=== PATIENT | male | born 1945 | race Caucasian/White ===

== ENCOUNTER 2022-03-25 09:51 | Outpatient (CLI) | payer MEDICARE, SELFPAY | END 2022-03-25 09:52 | disposition home or self-care (01) | LOC: ANHAUDIO 09:52 | PROVIDERS: PCP Family Medicine; Visit Provider Nurse Practitioner | DX: H90.41 Sensorineural hearing loss, unilateral, right ear, with unrestricted hearing on the contralateral side (principal); H90.72 Mixed conductive and sensorineural hearing loss, unilateral, left ear, with unrestricted hearing on the contralateral side | CPT/HCPCS: 92557; 92567 ==

== ENCOUNTER 2022-07-02 11:00 | Outpatient (RCR) | payer MEDICARE, SELFPAY | END 2022-07-02 23:59 | disposition home or self-care (01) | LOC: ANHAUDIO 11:00 | PROVIDERS: PCP Family Medicine; Visit Provider Family Medicine | DX: Z46.1 Encounter for fitting and adjustment of hearing aid (principal) | CPT/HCPCS: 99199; V5261 ==

== ENCOUNTER 2022-12-02 10:38 | Outpatient (RCR) | payer MEDICARE, SELFPAY ==
[2022-12-02 13:11] VITALS: BMI 31.0
[2022-12-02 13:13] VITALS: BMI 31.0
== END 2023-02-17 12:15 | disposition home or self-care (01) ==
LOC: ANHDMC 10:38
PROVIDERS: PCP Family Medicine; Visit Provider Family Medicine
DX: E11.9 Type 2 diabetes mellitus without complications (principal); Z71.3 Dietary counseling and surveillance
CPT/HCPCS: 97802

== ENCOUNTER 2023-04-28 07:24 | Outpatient (CLI) | payer MEDICARE, SELFPAY ==
--- NOTE | ~2023-04-28 | US_ITS ---
EXAMINATION: US abdomen complete DATE: 04/28/2023 09:55 INDICATION: Unspecified abdominal pain TECHNIQUE: Multiple grayscale and Doppler ultrasound images of the abdomen were obtained. COMPARISON: 06/06/2017 FINDINGS: Bowel gas obscures visualization of the pancreas. The liver is normal with normal echogenic ity and echotexture. No surface nodularity. Normal hepatopetal flow in the main portal vein. The gall bladder is normal with no abnormal wall thickening, pericholecystic fluid or stones. The normal commo n bile duct measures 7 mm. There was no sonographic Cabrera sign. The visualized portions of the aorta and inferior vena cava are normal. The spleen is normal in appearance and measures 12.7 cm cm. The right kidney measures 12.3 x 5.6 x 5. 4 cm. There is a 2.8 x 2.2 x 2.5 cm exophytic, isoechoic mass of the right kidney lower pole. The lef t kidney measures 13.3 x 6.3 x 4.7 cm and contains a 1.7 cm cyst. The kidneys demonstrate normal pare nchymal echogenicity. There is no hydronephrosis. IMPRESSION: 1. Indeterminate right kidney mass suspicious for renal neoplasm. Further evaluation by CT or MRI wit hout and with contrast is recommended. Reviewed, dictated and finalized at location L. ERSAL WINDING MACHINE OPERATOR IMPRESSION: 1. Indeterminate right kidney mass suspicious for renal neoplasm. Further evalu ation by CT or MRI without and with contrast is recommended.
== END 2023-04-28 07:25 | disposition home or self-care (01) ==
PROVIDERS: PCP Family Medicine; Visit Provider Nurse Practitioner
DX: R10.9 Unspecified abdominal pain (principal)
CPT/HCPCS: 76700

== ENCOUNTER 2023-05-13 07:03 | Outpatient (CLI) | payer MEDICARE, SELFPAY ==
--- NOTE | ~2023-05-13 | CT_ITS ---
EXAMINATION: CT abdomen pelvis wo/w con DATE: 05/13/2023 07:41 INDICATION: Disorders of kidney and ureter TECHNIQUE: Computed tomography (CT) of the abdomen and pelvis was performed without and subsequently with 130 CC Omnipaque 350 intravenous contrast. Automated exposure control and iterative reconstructi on technique were employed. Exam dose: 2397.58 mGy-cm total exam DLP. COMPARISON: 04/28/2023 complete abdominal ultrasound examination are indeterminate right renal mass les ion is noted, reported suspicious for renal neoplasm 2007 CT renal scan FINDINGS: Status post cholecystectomy. No hepatic, splenic, pancreatic or adrenal space-occupying mass lesion. No bile duct or pancreatic du ct dilatation. 3.3 x 3.6 x 3.9 cm vertical irregular heterogeneously hypoenhancing mass lesion of the lateral aspect of lower pole the right kidney, most consistent with malignant renal mass. Several bilateral renal cysts are noted, including one larger lower pole anterior left renal cyst jose g suring approximately 2.1 cm. 6.5 mm nonobstructing lower pole left renal calculus. No other urinary tract calculus or hydroureteronephrosis. Prostate enlargement and multiple prostate calcifications. Small sliding hiatal hernia. Duodenal diverticulum. The appendix is not detected. No bowel obstruction, bowel wall thickening, pneumatosis or intraperito yamile free air. There is atherosclerotic calcification but normal caliber of the abdominal aorta. No intraperitoneal or retroperitoneal or pelvic adenopathy or ascites. Very small fat-containing umbilical hernia. Small bilateral fat-containing inguinal hernias. Diffuse idiopathic skeletal hyperostosis of the thoracic spine. Multilevel degenerative disc disease, particularly at L3-4, L4-5 and L5-S1. Bilateral hip osteoarthritis. No suspicious osteolytic or osteoblastic lesions are noted. IMPRESSION: 3.3 x 3.6 x 3.9 cm malignant lower pole right renal neoplasm Bilateral renal cysts Status post cholecystectomy Small sliding hiatal hernia Duodenal diverticulum Prostate enlargement and calcifications Reviewed, dictated and finalized at Location A. Reviewed, dictated and finalized at location B.
[2023-05-13 07:25] LABS: Estimated Glomerular Filt Rate > 60
== END 2023-05-13 07:04 | disposition home or self-care (01) ==
PROVIDERS: PCP Family Medicine; Visit Provider Nurse Practitioner
DX: N28.1 Cyst of kidney, acquired (principal); C64.1 Malignant neoplasm of right kidney, except renal pelvis; Z90.49 Acquired absence of other specified parts of digestive tract; K44.9 Diaphragmatic hernia without obstruction or gangrene; K57.10 Diverticulosis of small intestine without perforation or abscess without bleeding
CPT/HCPCS: 74178; Q9967

== ENCOUNTER 2023-11-23 11:31 | Inpatient (IN) | payer MEDICARE, SELFPAY ==
[2023-11-23] VITALS (18 sets, daily range): BP systolic 109–145; BP diastolic 66–97; PULSE 61–115; RESP 12–26; TEMP 36.2–36.8; O2SAT 95–99; BMI 31.1
--- NOTE | 2023-11-23 | ECHO_ITS ---
Patient Info Name: Adonis Shabazz Age: 78 years : 1945 Gender: Male Ht: 72 in Wt: 230 lbs BSA: 2.33 m2 HR: 76 bpm BP: 122 / 80 mmHg Technical Quality: Fair Exam Date: 11/23/2023 2:53 PM Exam Location: Echo Lab Patient Status: Inpatient Admit Date: 11/23/2023 Staff Ordering Physician: Subhash Renteria MD ([email or web address]) Meat Press Operator: Nehemias Chase RDCS Attending Provider: Subhash Renteria MD (itz) Exam Type: CA echo dop color flow w con Study Info Indications I21.3 - ST elevation (STEMI) myocardial infarction of unspecified site Complete two-dimensional, color flow and Doppler transthoracic echocardiogram is performed with contrast to opacify the left ventricle and to improve the deliniation of the left ventricle endocardial borders. Contrast/Agitated Saline Contrast/Ag. Saline: Definity Amount: 3.00 ml Existing IV Access: Yes IV Access Condition: patent with no signs of infiltration Summary 1. The left ventricle is normal in size with mildly reduced ejection fraction. LVEF is estimated at to be 35-40%. The entire apex, distal anterior, distal lateral, distal inferior, and distal septal aleman are severely hypokinetic. There is no evidence of LV thrombus on contrast images. Left Ventricle The left ventricle is normal in size with mildly reduced ejection fraction. LVEF is estimated at to be 35-40%. The entire apex, distal anterior, distal lateral, distal inferior, and distal septal aleman are severely hypokinetic. There is no evidence of LV thrombus on contrast images. Right Ventricle The right ventricle was normal in size and systolic function. Left Atria Left atrial chamber dimension is normal. Left atrial chamber dimension is normal. Right Atria Right atrial chamber dimension is normal. Right atrial chamber dimension is normal. Aortic Valve The aortic valve is trileaflet and sclerotic. There is no aortic regurgitation. Pulmonic Valve The pulmonic valve is normal. There is no color Doppler evidence of pulmonic valve regurgitation. Mitral Valve The mitral valve leaflets are normal. There is trace mitral regurgitation. Tricuspid Valve The tricuspid valve is normal. There is trace tricuspid regurgitation. Pericardium/Pleural Pericardium is normal in appearance with no evidence for significant pericardial effusion. Inferior Vena Cava Inferior vena cava is not well visualized. Left Ventricular Outflow Tract Name Value Normal LVOT 2D LVOT Diameter 1.99 cm LVOT Doppler LVOT Peak Gradient 3 mmHg LVOT Mean Gradient 1 mmHg LVOT VTI 17.34 cm LVOT VTI/AV VTI Ratio 0.95 LVOT Stroke Volume 53.98 ml LVOT CO 3.79 l/min LVOT CI 1.63 L/min/m2 Pulmonic Valve Name Value Normal PV Doppler PV Peak Gradient
--- NOTE | 2023-11-23 11:32 | PC.NURSE ---
[address] [facility] [address] Renteria - Cardiology
--- NOTE | 2023-11-23 11:33 | ECG_ITS ---
Test Date: 2023-11-23 11:34:24 Measurements Intervals [place] Rate: 78 P: 61 ND: 176 QRS: -59 QRSD: 123 T: 70 QT: 423 QTc: 483 Interpretive Statements SINUS RHYTHM POSSIBLE RIGHT VENTRICULAR CONDUCTION DELAY [RSR (QR) IN V1/V2] LEFT ANTERIOR FASCICULAR BLOCK ABNORMAL ECG No previous ECG available for comparison Electronically Signed On 11-23-2023 13:41:17 CDT by Ayaz Victoria D.O.
--- NOTE | 2023-11-23 11:40 | ED.CHESTPAIN ---
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 Pt has history of high cholesterol and DM. Pt has no history of WI or CAD. Related Data Home Medications Medication Instructions Recorded Confirmed omega-3 fatty acids 1,000 mg 1,000 mg PO HS 07/09/20 11/23/23 capsule (Fish Oil Concentrate) loratadine 10 mg tablet (Allergy 10 mg PO ONCE PRN Allergy Symptoms 03/19/23 11/23/23 Relief (loratadine)) dapagliflozin propanediol 10 mg 10 mg PO DAILY 11/23/23 11/23/23 tablet metformin 1,000 mg tablet 1,000 mg PO Q12H 11/23/23 11/23/23 Allergies Allergy/AdvReac Type Severity Reaction Status Date / Time ketorolac Allergy Intermediate Hallucinati Verified 11/23/23 13:20 ng Review of Systems Review of Systems: All systems reviewed & are unremarkable except as noted in HPI and below PMFSH Past Medical History Medical History Hepatitis C antibody test negative (10/15/18) Mixed hyperlipidemia Renal cancer Type 2 diabetes mellitus without complications Surgical History Surgical History History of knee replacement (~2005) Hx of cholecystectomy (~06/07/17) Family History Family History (Updated 11/23/23 @ 13:10 by Nell Love RN) Sibling Diabetes mellitus Cerebrovascular accident Hypertension Father Congestive heart failure Hypertension Grandparent Acute myocardial infarction Son Cerebrovascular accident Mother Hypertension Social History Social History Social History: Caffeine- coffee/soda Smoking status: Former smoker Second hand tobacco smoke exposure: Yes Additional smoking assessment comments: pt only smoked in high school Alcohol intake: former Substance use: never Substance use type: does not use Do You Feel Safe in your Home?: Yes Lack of Transportation: No Lack of Food: Never True Current Housing: I Have Housing Concerned About Future Housing: No Difficulty Paying Gas/Electric Bills: No Difficulty Paying for Meds: No Currently Unemployed: No Education: High School Diploma/GED Difficulty w/ Childcare or Family Care: No Occupation/Education: retired Gender identity (if verbalized by the patient): Male Spiritual care concerns: No Exam Const: General: healthy appearing and no acute distress Orientation/consciousness: patient oriented x3 Limitations: no limitations Chest: Chest palpation & inspection: normal inspection of the chest Resp: Effort & Inspection: normal respiratory effort Auscultation: clear to auscultation bilaterally Cardio: Rate: regular rate Rhythm: regular rhythm Skin: General skin exam: normal color Rashes: no rashes Neuro: General: patient oriented x3 and moves all extremities Cranial nerves: Yes Nystagmus not present Speech: normal speech Extrem: General: normal to inspection and no clubbing, cyanosis or edema Psych: Mental Status: mental status grossly normal Affect: normal affect Attitude: cooperative Course Vital Signs Vital signs: Vital Signs Temperature 97.1 F L 11/23/23 11:33 Pulse Rate 66 11/23/23 11:33 Respiratory Rate 26 H 11/23/23 11:33 Blood Pressure 135/69 11/23/23 11:33 Pulse Oximetry 97 11/23/23 11:33 Oxygen Delivery Room Air 11/23/23 11:33 Temperature 97.9 F 11/23/23 17:45 Pulse Rate 75 11/23/23 17:45 Respiratory Rate 19 11/23/23 17:45 Blood Pressure 145/81 H 11/23/23 17:45 Pulse Oximetry 95 11/23/23 17:45 Oxygen Delivery Room Air 11/23/23 13:00 MDM - Chest Pain MDM Narrative Medical decision making narrative: initial prehospital 12 lead some subtle changes in high lateral and
[2023-11-23 11:41] LABS: Basophils Absolute Auto 0.1 K/mm3 (0.0-0.1); Basophils Percent Auto 0.9 % (0.2-1.2); Eosinophils Absolute Auto 0.3 K/mm3 (0-0.3); Eosinophils Percent Auto 2.4 % (0-4.4); Hematocrit 43.9 % (42.0-52.0); Hemoglobin 14.5 g/dL (14.0-18.0); Immature Granulocyte Absolute 0.07 K/mm3 (0.00-0.031); Immature Granulocyte Percent A 0.6 % (0-0.5); Lymphocytes Absolute Auto 2.83 K/mm3 (0.9-3.2); Lymphocytes Percent Auto 22.9 % (18.3-44.2); Mean Corpuscular Hemoglobin 31.9 pg (26-34); Mean Corpuscular Volume 96.5 fl (80-100); Mean Platelet Volume 10.2 fl (7.4-10.4); Monocytes Absolute Auto 0.9 K/mm3 (0.1-0.6); Monocytes Percent Auto 7.1 % (2.6-8.5); Neutrophils Absolute Auto 8.2 K/mm3 (1.3-6.7); Neutrophils Percent Auto 66.1 % (45.5-73.1); Platelet Count Result 317 k/mm3 (150-375); Red Blood Count 4.55 M/mm3 (4.6-6.20); Red Cell Distribution Width 13.9 % (11.5-14.5); White Blood Count 12.3 K/mm3 (4.5-10.0)
--- NOTE | 2023-11-23 11:44 | PM.CNCAR ---
Assessment and Plan Assessment and plan (1) Acute coronary syndrome: Code(s): I24.9 - Acute ischemic heart disease, unspecified Status: Acute Plan 78 yo man with DM type 2 and renal disease sp kidney resection here for chest pain found to have lateral wall STEMI on the field Acute Coronary Syndrome - left heart cath for possible PCI - loaded with ticagrelor 180mg and given heparin - echo History of Present Illness History of Present Illness Consult date/time: 11/23/23 11:44 Requesting physician: James Hamlin III, Consult reason: chest pain Reason For Visit: CP Narrative: 78 yo man with DM type 2 and renal disease sp kidney resection here for chest pain found to have lateral wall STEMI on the field. ECG in hospital shows ischemia. Patient still complaining of chest pain which started 30 minutes ago. No recent bleeding. No upcoming surgeries. Review of Systems Review of Systems: All systems reviewed & are unremarkable except as noted in HPI and below PMFSH Past Medical History Medical History Hepatitis C antibody test negative (10/15/18) Mixed hyperlipidemia Renal cancer Type 2 diabetes mellitus without complications Surgical History Surgical History History of knee replacement (~2005) Hx of cholecystectomy (~06/07/17) Social History Social History Social History: Caffeine- coffee/soda Smoking status: Never smoker Additional smoking assessment comments: pt only smoked in high school Alcohol intake: never Substance use: never Substance use type: does not use Lack of Transportation: No Lack of Food: Never True Current Housing: I Have Housing Concerned About Future Housing: No Difficulty Paying Gas/Electric Bills: No Difficulty Paying for Meds: No Currently Unemployed: No Education: High School Diploma/GED Difficulty w/ Childcare or Family Care: No Occupation/Education: retired Gender identity (if verbalized by the patient): Male Spiritual care concerns: No Meds Home Medications and Allergies Home Medications Medication Instructions Recorded Confirmed Type omega-3 fatty acids 1,000 mg 1,000 mg PO DAILY 07/09/20 08/11/23 History capsule (Fish Oil Concentrate) lancets 30 gauge (Cloudcam #100 ea 12/10/22 08/11/23 Rx Plus Lancet) loratadine 10 mg tablet (Allergy 10 mg PO ONCE PRN 03/19/23 08/11/23 History Relief (loratadine)) blood sugar diagnostic (YolandaTouch #100 ea 06/23/23 08/11/23 Rx Ultra Test strips) dapagliflozin propanediol 10 mg 10 mg PO DAILY #90 tabs 07/06/23 08/11/23 Rx tablet omeprazole 40 mg capsule,delayed See Rx Instructions .Route 08/20/23 Rx release .COMPLEX #90 caps dulaglutide 4.5 mg/0.5 mL 4.5 mg (0.5 mL) subcut WEEKLY #6 mL 09/07/23 Rx [facility] allopurinol 300 mg tablet 300 mg PO DAILY #90 tabs 09/21/23 Rx mirabegron 25 mg tablet,extended 25 mg PO DAILY #90 tabs 09/23/23 Rx release 24 hr levothyroxine 75 mcg tablet 75 mcg PO DAILY #90 tabs 10/01/23 Rx atorvastatin 20 mg tablet See Rx Instructions .Route 10/12/23 Rx .COMPLEX #90 tabs glimepiride 1 mg tablet See Rx Instructions .Route 10/12/23 Rx .COMPLEX #180 tabs metformin 1,000 mg tablet 1,000 mg PO BID #90 tabs 11/04/23 Rx Allergies Allergy/AdvReac Type Severity Reaction Status Date / Time ketorolac Allergy Unknown angioedema Verified 08/11/23 14:27 Exam Const: General: in distress Eyes: EOM: EOMs intact bilaterally Neck: Neck: no JVD Resp: Effort & Inspection: normal respiratory effort Cardio: Rate: regular rate Extrem: General: normal to inspection and no edema Psych: Affect: normal affect Results Labs and Meds 11/23/23 11:36 11/23/23 11:36 Lab results: CBC
--- NOTE | 2023-11-23 11:48 | WPDMODSED ---
Moderate Sedation Note-Pt Data Patient Data Allergies Allergy/AdvReac Type Severity Reaction Status Date / Time ketorolac Allergy Unknown angioedema Verified 08/11/23 14:27 Home Medications Medication Instructions Recorded Confirmed Type omega-3 fatty acids 1,000 mg 1,000 mg PO DAILY 07/09/20 08/11/23 History capsule (Fish Oil Concentrate) lancets 30 gauge (OneTouch Delica #100 ea 12/10/22 08/11/23 Rx Plus Lancet) loratadine 10 mg tablet (Allergy 10 mg PO ONCE PRN 03/19/23 08/11/23 History Relief (loratadine)) blood sugar diagnostic (OneTouch #100 ea 06/23/23 08/11/23 Rx Ultra Test strips) dapagliflozin propanediol 10 mg 10 mg PO DAILY #90 tabs 07/06/23 08/11/23 Rx tablet omeprazole 40 mg capsule,delayed See Rx Instructions .Route 08/20/23 Rx release .COMPLEX #90 caps dulaglutide 4.5 mg/0.5 mL 4.5 mg (0.5 mL) subcut WEEKLY #6 mL 09/07/23 Rx subcutaneous pen injector (Trulicity) allopurinol 300 mg tablet 300 mg PO DAILY #90 tabs 09/21/23 Rx mirabegron 25 mg tablet,extended 25 mg PO DAILY #90 tabs 09/23/23 Rx release 24 hr levothyroxine 75 mcg tablet 75 mcg PO DAILY #90 tabs 10/01/23 Rx atorvastatin 20 mg tablet See Rx Instructions .Route 10/12/23 Rx .COMPLEX #90 tabs glimepiride 1 mg tablet See Rx Instructions .Route 10/12/23 Rx .COMPLEX #180 tabs metformin 1,000 mg tablet 1,000 mg PO BID #90 tabs 11/04/23 Rx Sedation/Anesthesia: No previous sedation/anesthesia problems (including family history). [facility] Past Medical History Medical History Hepatitis C antibody test negative (10/15/18) Mixed hyperlipidemia Renal cancer Type 2 diabetes mellitus without complications Surgical History Surgical History History of knee replacement (~2005) Hx of cholecystectomy (~06/07/17) Social History Social History Social History: Caffeine- coffee/soda Smoking status: Never smoker Additional smoking assessment comments: pt only smoked in high school Alcohol intake: never Substance use: never Substance use type: does not use Lack of Transportation: No Lack of Food: Never True Current Housing: I Have Housing Concerned About Future Housing: No Difficulty Paying Gas/Electric Bills: No Difficulty Paying for Meds: No Currently Unemployed: No Education: High School Diploma/GED Difficulty w/ Childcare or Family Care: No Occupation/Education: retired Gender identity (if verbalized by the patient): Male Spiritual care concerns: No Mod Sed Physical Exam Physical Exam Pre Procedural Exam: Variation: Appearance (acute distress) Hours since solid foods: 4 Hours since liquid intake: 4 Mallampati Classification: class III Internal Medicine - PN: Obj Da Vital Signs Vital Signs: Vital Signs - 24 hr 11/23/23 11:33 Temperature 36.2 C L Pulse Rate 66 Respiratory Rate 26 H Blood Pressure 135/69 Pulse Oximetry 97 Oxygen Delivery Room Air Labs 11/23/23 11:36 11/23/23 11:36 Labs: Laboratory Results - last 24 hr 11/23/23 11:36 WBC 12.3 H RBC 4.55 L Hgb 14.5 Hct 43.9 MCV 96.5 MCH 31.9 MCHC 33.0 RDW 13.9 Plt Count 317 MPV 10.2 Immature Gran % (Auto) 0.6 H Neut % (Auto) 66.1 Lymph % (Auto) 22.9 [place] % (Auto) 7.1 Eos % (Auto) 2.4 Baso % (Auto) 0.9 Lymph # (Auto) 2.83 [place] # (Auto) 0.9 H Eos # (Auto) 0.3 Baso # (Auto) 0.1 Abs Immat Gran (auto) 0.07 H Absolute Neuts (auto) 8.2 H Absolute Nucleated RBC 0.000 Nucleated RBC % 0.0 ASA Classification/Sedation ASA Classification/Sedation ASA Class: III Emergent: Yes Risks: Risks, benefits and alternatives explained and patient/family accepted plan for sedation. Patient re-evaluated immediately prior to sedation.
--- NOTE | 2023-11-23 11:48 | WPDCARDPROC ---
Cardiac Cath Procedure Note Date of procedure:: 11/23/23 Performing physician:: CATHETERIZATION LABORATORY REPORT Procedure Date: 11/23/2023 Referring Physician: Dr. Hamlin Anesthesia: Versed and Fentanyl were ordered and given in my presence at 1153, procedure ended at 1219. Supervision of nurse, Thalia Rivera, monitored moderate sedation with 50mcg Fentanyl was provided for 26 minutes. Pre-op Diagnosis: NSTEMI Post-op Diagnosis: NSTEMI Procedure(s): Left heart catheterization with coronary angiography and Percutaneous Coronary Intervention Access Site: Right TICKET COUNTER. Angioseal Brief History and Clinical Indications: 78 yo man with renal cancer sp partial resection, DM type 2, and HLD presented with acute chest pain 30 minutes prior to presentation whose clinical course is consistent with high risk NSTEMI All risks, benefits and alternatives to left heart catheterization with or without percutaneous coronary intervention was discussed at length with the patient. Risk of complications including but not limited to bleeding, infection, arrhythmia, stroke, worsening kidney function, blood loss, groin hematoma, limb loss, emergency coronary artery bypass grafting, and even were discussed with the patient and all questions were answered. The patient understood and wished to proceed. Time out called, patient name, date of , medical record number, allergies, procedure performed, identify Rn Oncology Clinical, patient and staff member concurred with accurate data, procedure carried on. Findings: LEFT HEART CATHETERIZATION FINDINGS: 1. Left main: The left main coronary artery is widely patent without any significant obstructive disease. 2. Left anterior descending: The LAD gives off diagonal branches that have mild luminal irregularities without any significant obstructive angiographic disease. The mid LAD has a 90% stenosis. 3. Left circumflex: The left circumflex artery and the main marginal branches have mild luminal irregularities without any significant obstructive angiographic disease. 4. Right coronary artery: The RCA has mild diffuse disease without any significant obstructive angiographic disease. The RCA is the dominant vessel. 5. Left ventricle: A. End-diastolic pressure 29 mmHg. B. LV gram deferred. C. No significant gradient across aortic valve on catheter pullback. 6. Opening pressure 128/70 Description of Procedure: Emergent consent obtained and patient transferred to central lab technician room. Prepped and draped in usual sterile fashion. 2% lidocaine in right groin area. Micropuncture needle used to access right common femoral artery with Seldinger technique under fluoroscopic guidance. J wire advanced, micropuncture cannula placed. CLS 3.5 guide catheter engaged Left Main Coronary Artery. FR4 diagnostic catheter engaged Right Coronary Artery. Multiple orthogonal angiogram obtained and reviewed FR4 diagnostic catheter crossed aortic valve to obtain LVEDP, LV angiogram deferred. Procedure Description for PCI: A culprit lesion was found and procedure converted to PCI. Heparin was used for anticoagulation (ACT maintained above 250) Patient loaded with heparin at 70 units/kg. 6Fr CLS3.5 guide catheter was used to engage the LMCA 0.014 [employer] coronary wire was passed in to the LAD The lesion was pre-dilated with a 2.5 mm x 15 mm balloon inflated to high DANIA A 3.5 mm x 22mm Nestor Ledbetter JOSÉ was successfully deployed into the mid LAD The stent was post-dilated with a 3.75 mm x 12mm NC balloon inflated to high DANIA Follow-up angiograms showed an excellent result Coronary wire and guide-catheter were removed Pre-procedure - MARIA GUADALUPE 3 flow Post-procedure - MARIA GUADALUPE 3 flow No angiographic complications identified. Assessment: NSTEMI Post Operative Condition: Stable No significant blood loss Disposition: ICU Plan: ASA 81mg daily and Ticagrelor 90mg PO BID for a minimum of 1 year High intensity statin, beta daily as
--- NOTE | 2023-11-23 11:50 | PC.NURSE ---
5000 units of heparin given IV push via 18g LFA and 180 mg of Brilinta PO given at 1135 by this RN
[2023-11-23 11:51] LABS: Alanine Aminotransferase 28 U/L (6-50); Albumin Level 4.4 g/dL (3.5-5.1); Alkaline Phosphatase 89 U/L (38-126); Anion Gap 18 mmol/L (4-12); Aspartate Amino Transferase 27 U/L (17-59); Bilirubin,Total 0.7 mg/dL (0.2-1.3); Blood Urea Nitrogen 18 mg/dL (9-20); Calcium 9.6 mg/dL (8.4-10.2); Carbon Dioxide 18 mmol/L (22-30); Chloride 104 mmol/L (98-107); Estimated Glomerular Filt Rate 59; Glucose 236 mg/dL (65-110); Lipase 127 U/L (23-300); Potassium 3.8 mmol/L (3.4-5.0); Sodium 140 mmol/L (137-145)
--- NOTE | 2023-11-23 11:53 | PC.NURSE ---
Patient left the ER to be taken to salvage laborer at 1142.
[2023-11-23 11:54] LABS: INR 1.1; Prothrombin Time 14.5 Seconds (11.1-14.7)
[2023-11-23 11:55] LABS: Partial Thromboplastin Time 21.7 Seconds (22.3-36.8)
[2023-11-23 12:02] LABS: Troponin I 0.012 ng/mL (0.000-0.034)
[2023-11-23 12:22] LABS: Activated Clotting Time 238 SEC (74-137)
--- NOTE | 2023-11-23 13:18 | WPDCNINT ---
Assessment and Plan Assessment and plan (1) ST elevation (STEMI) myocardial infarction: Code(s): I21.3 - ST elevation (STEMI) myocardial infarction of unspecified site Status: Acute Assessment and Plan: Patient presented with chest pain retrosternal along with shortness of breath and nausea. EKG showed ST elevation in lateral and anterolateral leads patient was taken to labeler where he had a mid LAD lesion, PTCA/PCI with JOSÉ x1 to mid LAD -patient will be on dual antiplatelet therapy, statin, beta-blockers -cardiology following the patient -discussed with Cardiology they will be placing a order for echocardiogram -monitor patient for arrhythmias in the ICU (2) Type 2 diabetes mellitus without complications: Qualifiers: Diabetes mellitus salvage determiner insulin use: without salvage determiner use Qualified Code(s): E11.9 - Type 2 diabetes mellitus without complications Code(s): E11.9 - Type 2 diabetes mellitus without complications Status: Acute Assessment and Plan: History of diabetes, patient is on metformin, glimepiride, dapagliflozin -currently on Accu-Cheks and sliding scale insulin, will restart all medications -mild anion gap metabolic acidosis could be related to diabetes, hypoperfusion secondary to a STEMI -receiving IV fluids -will recheck BMP (3) Mixed hyperlipidemia: Code(s): E78.2 - Mixed hyperlipidemia Status: Acute Assessment and Plan: Cardiology will put him on high-dose statins Plan DVT prophylaxis: Status post cardiac catheterization Stress ulcer prophylaxis: Not in the Nutrition: Heart healthy diet Code Status: Full code Critical Care Time Spent: 44 minute Discussed with patient and his spouse at bedside and updated them with patient's condition and plan of care. I answered all the questions Due to a high probability of clinically significant, life threatening deterioration, the patient required my highest level of preparedness to intervene emergently and I personally spent this critical care time directly and personally managing the patient. This critical care time included obtaining a history; examining the patient; pulse oximetry; ordering and review of studies; arranging urgent treatment with development of a management plan; evaluation of patient's response to treatment; frequent reassessment; and discussions with other providers. It was exclusive of separately billable procedures and treating other patients and teaching time. Please see Assessment and Plan section and the rest of the note for further information on patient assessment and treatment This dictation may have been done utilizing a voice recognition system. Attempts have been made to correct errors. However, there may be uncorrected grammatical, spelling, and recognitions errors present. Triage Register Nurse Consult Note Consult date: 11/23/23 Reason for consult: Chest pain, acute STEMI HPI: Adonis Shabazz is a 78 year old male with past medical history of mixed hyperlipidemia, type 2 diabetes, history of renal cancer status post nephrectomy presented to the ER on 11/23/2023 with chest pain, EKG showed ST-elevation [place] in lateral and anterolateral leads. STEMI team was alerted, patient was taken to the labeler vein was found to have occlusion of his LAD status post JOSÉ x1. Patient did get Angio-Seal was transferred to the ICU for further management and monitoring Patient seen and examined the ICU, pleasant gentleman currently denies any chest pain, shortness of breath, nausea vomiting at this time. Hemodynamically stable, afebrile. Denies any alcohol, tobacco or illicit drug use. Review of Systems Review of Systems: All systems reviewed & are unremarkable except as noted in HPI and below PMFSH Past Medical History Medical History Hepatitis C antibody test negative (10/15/18) Mixed hyperlipidemia Renal cancer Type 2 diabetes mellitus without com
--- NOTE | 2023-11-23 13:19 | ADMGEN ---
This patient, Adonis Shabazz, was admitted to Intensive Care Unit-5. Patient/family oriented to hospital policies and general routines including ID bracelet, bed and alarms, visiting hours, pain management, procedures, bathroom and other care routines, personal items, smoking policy, room service/diet, and visiting hours. Information on how to activate the Rapid Response Team has been discussed. Patient/Family are encouraged to report perceived risks to care and to ask questions if they do not understand what they are told or what they should do.
[2023-11-23] MEDS: SODIUM CHLORIDE 0.9% IV 1,000 ML 125 ML IV CONT (13:55)
[2023-11-23 15:26] LABS: MRSA (PCR) NOT DETECTED (NOT DETECTE)
[2023-11-23] MEDS: PERFLUTREN LIPID MICROSPHERES 1.5 ML VIAL DILUTED TO 10 ML TOTAL VOLUME IV PUSH (16:39)
--- NOTE | 2023-11-23 16:39 | IVDEFINITY ---
Prior to administration of IV Definity the patient was educated on the risks and benefits of the imaging enhancing agent including potential adverse side effects. The patient verbalized understanding. Allergies were verified. No exclusion criteria were identified and at least one of the following inclusion criteria were met: 1) physician request, 2) patient technically difficult to image (per the [place] [employer]ocardi[employer] guidelines of two or more segments not discernable within the apical view), or 3) questionable left ventricular function. ?
[2023-11-23 17:07] LABS: Glucose Point of Care 123 mg/dl (65-105)
[2023-11-23] MEDS: EMPAGLIFLOZIN 25 MG TABLET BY MOUTH (20:32)
[2023-11-23] MEDS: TICAGRELOR 90 MG TABLET PO (20:32)
[2023-11-23] MEDS: METOPROLOL TARTRATE 6.25 MG TABLET PO (20:32)
[2023-11-23 21:00] LABS: Anion Gap 14 mmol/L (4-12); Blood Urea Nitrogen 18 mg/dL (9-20); Calcium 8.9 mg/dL (8.4-10.2); Carbon Dioxide 22 mmol/L (22-30); Chloride 102 mmol/L (98-107); Estimated CRCL calculation 67 ml/min; Estimated Glomerular Filt Rate > 60; Glucose 156 mg/dL (65-110); Potassium 3.9 mmol/L (3.4-5.0); Sodium 138 mmol/L (137-145)
[2023-11-24] VITALS (8 sets, daily range): BP systolic 109–143; BP diastolic 74–96; PULSE 85–124; RESP 16–20; TEMP 36.3–36.8; O2SAT 95–100
[2023-11-24 01:01] LABS: Glucose Point of Care 152 mg/dl (65-105)
[2023-11-24 04:39] LABS: Basophils Absolute Auto 0.1 K/mm3 (0.0-0.1); Basophils Percent Auto 0.4 % (0.2-1.2); Eosinophils Absolute Auto 0.2 K/mm3 (0-0.3); Eosinophils Percent Auto 1.9 % (0-4.4); Hematocrit 42.2 % (42.0-52.0); Hemoglobin 14.2 g/dL (14.0-18.0); Immature Granulocyte Absolute 0.05 K/mm3 (0.00-0.031); Immature Granulocyte Percent A 0.4 % (0-0.5); Lymphocytes Absolute Auto 1.64 K/mm3 (0.9-3.2); Lymphocytes Percent Auto 14.5 % (18.3-44.2); Mean Corpuscular HGB Conc 33.6 g/dl (32-36); Mean Corpuscular Hemoglobin 32.3 pg (26-34); Mean Corpuscular Volume 96.1 fl (80-100); Monocytes Absolute Auto 0.8 K/mm3 (0.1-0.6); Monocytes Percent Auto 6.8 % (2.6-8.5); Neutrophils Absolute Auto 8.6 K/mm3 (1.3-6.7); Platelet Count Result 241 k/mm3 (150-375); Red Blood Count 4.39 M/mm3 (4.6-6.20); Red Cell Distribution Width 13.9 % (11.5-14.5); White Blood Count 11.3 K/mm3 (4.5-10.0)
[2023-11-24 05:00] LABS: Alanine Aminotransferase 28 U/L (6-50); Albumin Level 4.1 g/dL (3.5-5.1); Alkaline Phosphatase 73 U/L (38-126); Anion Gap 11 mmol/L (4-12); Aspartate Amino Transferase 56 U/L (17-59); Bilirubin,Total 0.9 mg/dL (0.2-1.3); Blood Urea Nitrogen 17 mg/dL (9-20); Carbon Dioxide 25 mmol/L (22-30); Chloride 103 mmol/L (98-107); Estimated CRCL calculation 67 ml/min; Estimated Glomerular Filt Rate > 60; Glucose 134 mg/dL (65-110); Magnesium 1.5 mg/dL (1.6-2.3); Phosphorus 3.3 mg/dL (2.5-4.5); Potassium 4.2 mmol/L (3.4-5.0); Sodium 139 mmol/L (137-145)
[2023-11-24] MEDS: LEVOTHYROXINE SODIUM 75 MCG TABLET PO (06:10)
[2023-11-24] MEDS: ASPIRIN 81 MG ENTERIC TABLET PO (08:06)
[2023-11-24] MEDS: ATORVASTATIN 40 MG TABLET 80 MG PO (08:06)
[2023-11-24 08:07] LABS: Glucose Point of Care 128 mg/dl (65-105)
[2023-11-24] MEDS: MAGNESIUM SULF 2 GM/WATER 50ML 2 GM/50 ML BAG IVPB (08:07)
[2023-11-24] MEDS: TICAGRELOR 90 MG TABLET PO (08:07)
[2023-11-24] MEDS: LOSARTAN POTASSIUM 25 MG TABLET PO (08:07)
[2023-11-24] MEDS: METOPROLOL TARTRATE 6.25 MG TABLET PO (08:07)
--- NOTE | 2023-11-24 09:29 | PM.PNCARD ---
Progress Note: A&P Assessment and Plan (1) NSTEMI (non-ST elevated myocardial infarction): Code(s): I21.4 - Non-ST elevation (NSTEMI) myocardial infarction Status: Acute (2) Ischemic cardiomyopathy: Code(s): I25.5 - Ischemic cardiomyopathy Status: Acute Plan 78 yo man with renal mass sp partial resection, DM type 2, and HLD presented with acute chest pain 30 minutes prior to presentation whose clinical course is consistent with high risk NSTEMI now also found to have ischemic cardiomyopathy NSTEMI - sp PCI to mLAD and should be on ASA 81mg and ticagrelor 90mg PO BID - continue atorvastatin 80mg qhs - start toprol 25mg PO daily - repeat ECG today Ischemic Cardiomyopathy - started on losartan 25mg PO daily yesterday - will give a dose of lasix 40mg IVP today given the tachycardia Dispo: pending above and needs to ambulate Patient can follow up with or outpatient where cardiac rehab will be set up Subjective Date/time seen: 11/24/23 09:29 Interval history: no chest pain, dyspnea, or orthopnea. urinating well Review of Systems Review of Systems: All systems reviewed & are unremarkable except as noted in HPI and below Exam Const: General: comfortable HENMT: Mouth: Yes moist mucous membranes Eyes: EOM: EOMs intact bilaterally Neck: Neck: no JVD Resp: Effort & Inspection: normal respiratory effort Cardio: Rhythm: regular rhythm GI: GI Palp: Yes Soft to palpation Neuro: Speech: normal speech Extrem: General: normal to inspection Other: right groin without hematoma, bruit, or bleeding. dressing removed Psych: Affect: normal affect Objective Data Vital Signs Vital Signs: Vital Signs - 24 hr 11/23/23 11:33 11/23/23 11:42 11/23/23 13:00 Temperature 36.2 C L 36.2 C L 36.8 C Pulse Rate 66 61 84 Respiratory Rate 26 H 26 H 13 Blood Pressure 135/69 135/66 127/71 Pulse Oximetry 97 98 96 Oxygen Delivery Room Air 11/23/23 13:53 11/23/23 13:00 11/23/23 14:00 Temperature 36.7 C 36.7 C Pulse Rate 82 76 Respiratory Rate 12 14 Blood Pressure 130/73 122/80 Pulse Oximetry 95 98 97 Oxygen Delivery Room Air 11/23/23 14:15 11/23/23 13:15 11/23/23 13:30 Temperature 36.7 C 36.7 C 36.8 C Pulse Rate 82 83 80 Respiratory Rate 21 H 15 21 H Blood Pressure 133/74 132/74 124/72 Pulse Oximetry 99 97 96 Oxygen Delivery 11/23/23 14:15 11/23/23 14:45 11/23/23 15:43 Temperature 36.7 C 36.7 C 36.7 C Pulse Rate 82 81 78 Respiratory Rate 21 H 15 13 Blood Pressure 133/74 124/69 133/83 Pulse Oximetry 99 97 99 Oxygen Delivery 11/23/23 16:45 11/23/23 16:00 11/23/23 17:45 Temperature 36.8 C 36.8 C 36.6 C Pulse Rate 77 74 75 Respiratory Rate 15 15 19 Blood Pressure 143/89 H 109/97 H 145/81 H Pulse Oximetry 97 98 95 Oxygen Delivery 11/23/23 16:00 11/23/23 18:45 11/23/23 14:00 Temperature 36.6 C Pulse Rate 112 H 81 Respiratory Rate 18 Blood Pressure 144/87 H Pulse Oximetry 95 99 Oxygen Delivery Room Air 11/23/23 16:00 11/23/23 18:00 11/23/23 20:32 Temperature Pulse Rate 90 81 111 H Respiratory Rate Blood Pressure Pulse Oximetry Oxygen Delivery 11/23/23 20:00 11/23/23 20:00 11/23/23 22:00 Temperature 36.6 C Pulse Rate 115 H 110 H 115 H Respiratory Rate 18 Blood Pressure 119/82 Pulse Oximetry 98 Oxygen Delivery 11/24/23 00:00 11/24/23 00:00 11/24/23 02:00 Temperature 36.6 C Pulse Rate 98 85 89 Respiratory Rate 20 17 Blood Pressure 143/83 H 132/77 Pulse Oximetry 100 97 Oxygen Delivery 11/24/23 02:00 11/24/23 04:00 11/24/23 04:00 Temperature 36.7 C Pulse Rate 89 96 103 H Respiratory Rate 19 Blood Pressure 123/82 Pulse Oximetry 98 Oxygen Delivery 11/24/23 06:00 11/24/23 06:00 11/24/23 08:07 Temperature 36.8 C Pulse Rate 111 H 111 H 109 H Respiratory Rate 18 Blood Pressure 135/96 H Pulse Oximetry 99 Oxygen Delivery 11/24/23 08:00 Tem
--- NOTE | 2023-11-24 09:30 | ECG_ITS ---
Test Date: 2023-11-24 09:57:07 Measurements Intervals Hunter Rate: 104 P: 44 VA: 247 QRS: -58 QRSD: 108 T: 133 QT: 394 QTc: 520 Interpretive Statements SINUS TACHYCARDIA WITH FIRST DEGREE AV BLOCK LEFT ANTERIOR FASCICULAR BLOCK [QRS AXIS <= -45, QR IN I, RS IN II] ANTEROSEPTAL MYOCARDIAL INFARCTION [40+ ms Q WAVE IN V1-V4], OF INDETERMINATE AGE MODERATE T-WAVE ABNORMALITY, CONSIDER LATERAL ISCHEMIA [-0.1+ mV T WAVE IN I/aVL/V5/V6] Compared to ECG 11/23/2023 11:34:24 First degree AV block now present Myocardial infarct finding now present T-wave abnormality now present Possible ischemia now present Sinus rhythm no longer present Electronically Signed On 11-24-2023 10:12:56 CDT by Subhash Renteria M.D.
[2023-11-24] MEDS: FUROSEMIDE INJ 40 MG/4 ML VIAL IV PUSH (10:18)
--- NOTE | 2023-11-24 11:46 | WPDINTPN ---
Progress Note: A&P Assessment and Plan (1) ST elevation (STEMI) myocardial infarction: Code(s): I21.3 - ST elevation (STEMI) myocardial infarction of unspecified site Status: Acute Assessment and Plan: Patient presented with chest pain retrosternal along with shortness of breath and nausea. EKG showed ST elevation in lateral and anterolateral leads patient was taken to [facility] where he had a mid LAD lesion, PTCA/PCI with JOSÉ x1 to mid LAD -patient will be on dual antiplatelet therapy, statin, beta-blockers -new ischemic cardiomyopathy, patient started on losartan -1 dose of Lasix per Cardiology today -cardiology following the patient -11/23/2023: Echocardiogram Summary 1. The left ventricle is normal in size with mildly reduced ejection fraction. LVEF is estimated at to be 35-40%. The entire apex, distal anterior, distal lateral, distal inferior, and distal septal aleman are severely hypokinetic. There is no evidence of LV thrombus on contrast images (2) Ischemic cardiomyopathy: Code(s): I25.5 - Ischemic cardiomyopathy Status: Acute Assessment and Plan: Ischemic cardiomyopathy as above (3) Type 2 diabetes mellitus without complications: Qualifiers: Diabetes mellitus director park insulin use: without half-way use Qualified Code(s): E11.9 - Type 2 diabetes mellitus without complications Code(s): E11.9 - Type 2 diabetes mellitus without complications Status: Acute Assessment and Plan: History of diabetes, patient is on metformin, glimepiride, dapagliflozin -currently on Accu-Cheks and sliding scale insulin, patient on home oral diabetic medications (4) Mixed hyperlipidemia: Code(s): E78.2 - Mixed hyperlipidemia Status: Acute Assessment and Plan: Continue high-dose statin Plan DVT prophylaxis: Status post cardiac catheterization Stress ulcer prophylaxis: Not in the Nutrition: Heart healthy diet Code Status: Full code Critical Care Time Spent: 31 minute Discussed with patient and his spouse at bedside and updated them with patient's condition and plan of care. I answered all the questions Due to a high probability of clinically significant, life threatening deterioration, the patient required my highest level of preparedness to intervene emergently and I personally spent this critical care time directly and personally managing the patient. This critical care time included obtaining a history; examining the patient; pulse oximetry; ordering and review of studies; arranging urgent treatment with development of a management plan; evaluation of patient's response to treatment; frequent reassessment; and discussions with other providers. It was exclusive of separately billable procedures and treating other patients and teaching time. Please see Assessment and Plan section and the rest of the note for further information on patient assessment and treatment This dictation may have been done utilizing a voice recognition system. Attempts have been made to correct errors. However, there may be uncorrected grammatical, spelling, and recognitions errors present. Subjective Date/time seen: 11/24/23 11:46 Interval history: Reason for consult is, status post STEMI with JOSÉ x1 to mid LAD 11/24/2023: Patient seen and examined the ICU, denies any chest pain, shortness of breath, abdominal pain, nausea, vomiting. Early this morning he had a panic attack since his nose was congested and was not getting enough air, after he received some saline spray his anxiety improved any feels he is back to normal. No other issues overnight Review of Systems Review of Systems: All systems reviewed & are unremarkable except as noted in HPI and below Exam Narrative: General: Pleasant gentleman in no acute distress HEENT:? Pupils equal and reactive, sclera is clear, moist oral mucosa Neck:? Supple Respiratory:? Clear to auscultation bilaterally, adequate a
[2023-11-24 12:21] LABS: Glucose Point of Care 200 mg/dl (65-105)
--- NOTE | 2023-11-26 15:47 | PM.DS ---
DS: Admitting Diagnosis Discharge Date 11/24/23 Admitting Diagnosis NSTEMI DS: Discharge Diagnosis Discharge Diagnosis Plan 78 yo man who presented to the hospital with high risk NSTEMI who underwent primary PCI to his LAD found to have ischemic cardiomyopathy for which he was prescribed GDMT, DAPT, and statins DS: Summary Hospital Course Reason for hospitalization: NSTEMI Hospital Course: 78 yo man who presented to the hospital with high risk NSTEMI who underwent primary PCI to his LAD found to have ischemic cardiomyopathy for which he was prescribed GDMT, DAPT, and statins. He was asymptomatic after primary PCI and was discharged in asymptomatic stable condition 24 hours after his primary PCI Status at Discharge Functional status at discharge: independent ambulation Overall status at discharge: patient is back to baseline Time Spent with Patient Time attestation: Total time spent providing and/or coordinating discharge services: Time spent: Less than 30 minutes Exam Const: General: comfortable HENMT: Mouth: Yes moist mucous membranes Eyes: EOM: EOMs intact bilaterally Neck: Neck: no JVD Resp: Auscultation: clear to auscultation bilaterally Cardio: Rhythm: regular rhythm GI: GI Palp: Yes Soft to palpation Skin: Wounds: no wounds Extrem: General: normal to inspection Psych: Affect: normal affect Discharge Plan Discharge Attending physician on discharge: Subhash Rentreia Consulting providers: Loulou Christiansen; Ayaz Victoria Discharging Clinician: Subhash Renteria Patient Disposition: Home, Self-Care Activity: other - see discharge instructions Diet: heart healthy Wound Care Instructions: other - see discharge instructions Discharge Instructions: [facility] [address] [place] [address] DISCHARGE INSTRUCTIONS - POST PCI Activity 1. No driving until 11/26/23. 2. No lifting, pushing or pulling more than 10 pounds for 1 week. 3. No strenuous exercise or activity (including sexual activity) until you are released to do so. 4. May shower but no tub baths or swimming pool for 1 week. Avoid commercial hot tubs. They are too hot. Medications DO NOT STOP YOUR MEDICATIONS ONLY YOUR CYBER POLICY AND STRATEGY PLANNER CAN STOP THE FOLLOWING MEDICATIONS - PLEASE CALL THE OFFICE WITH QUESTIONS. *Aspirin *Ticagrelor (Brilinta) *Atorvastatin *Losartan *Metoprolol Important Reminders 1. Keep your stent card in your wallet at all times 2. Follow a heart healthy diet paying extra attention to cholesterol and fats. 3. Stay hydrated. 4. If you have chest pain unrelieved by rest or nitroglycerin (if prescribed) call 911 immediately. 5. If you miss one dose of Brilinta (if prescribed) take a tablet at the next time due. If you miss 2 doses take a tablet when you remember and resume at the next time due. *For any other questions please call the office at [phone]. Office hours are 8AM 4:30PM Thursday through Thursday. Patient Instructions: Antibiotic Form, Ticagrelor (By mouth), Heart Attack (DC), Heart Healthy Diet (DC), Acute Coronary Syndrome (DC), Heart Catheterization (DC), Coronary Intravascular Stent Placement (DC), Angio-Seal (DC), Left Heart Catheterization (DC) Stand Alone Forms: General Discharge Information Follow-up/Referrals: Hayley Garcia DO [Primary Care Provider] - Discharge Medications: New Brilinta 90 mg Tablet 90 mg PO Q12HR Qty: 60 11RF atorvastatin 40 mg T
== END 2023-11-24 13:57 | disposition home or self-care (01) | DRG 322 ==
LOC: ANHED 11:36 → ANHICU 11:40
PROVIDERS: Internal Medicine; Physician Assistant; Admitting Provider Internal Medicine; Emergency Provider Emergency Medicine; PCP Family Medicine; Visit Provider Internal Medicine
PROC: 4A023N7 Measurement of Cardiac Sampling and Pressure, Left Heart, Percutaneous Approach (ICD-10-PCS; CPT 93452; principal; 2023-11-23 11:45)
PROC: 027034Z Dilation of Coronary Artery, One Artery with Drug-eluting Intraluminal Device, Percutaneous Approach (ICD-10-PCS; 2023-11-23 11:45)
PROC: 027034Z Dilation of Coronary Artery, One Artery with Drug-eluting Intraluminal Device, Percutaneous Approach (ICD-10-PCS; 2023-11-23 11:45)
PROC: 027034Z Dilation of Coronary Artery, One Artery with Drug-eluting Intraluminal Device, Percutaneous Approach (ICD-10-PCS; 2023-11-23 11:45)
DX: I21.3 ST elevation (STEMI) myocardial infarction of unspecified site (principal); I25.5 Ischemic cardiomyopathy; E78.2 Mixed hyperlipidemia; E11.22 Type 2 diabetes mellitus with diabetic chronic kidney disease; N18.9 Chronic kidney disease, unspecified; Z96.659 Presence of unspecified artificial knee joint; Z85.528 Personal history of other malignant neoplasm of kidney; Z90.49 Acquired absence of other specified parts of digestive tract; Z87.891 Personal history of nicotine dependence
CPT/HCPCS: 36415; 80048; 80053; 82948; 83690; 83735; 84100; 84484; 85025; 85610; 85730; 87641; 92978; 93005; 93306; 93458; 99285; A9270; C1725; C1753; C1760; C1769; C1874; C1887; C1894; C8929; C9600; G0269; J1644; J1940; J2003; J2250; J2405; J3010; J3475; J7030; J7040; Q9957

== ENCOUNTER 2024-03-01 10:50 | Outpatient (CLI) | payer MEDICARE, SELFPAY ==
--- NOTE | ~2024-03-01 | XR_ITS ---
EXAMINATION: XR chest 2V 03/01/2024 11:16 INDICATION: Shortness of breath PROCEDURE: 2 view chest COMPARISON: Comparison to multiple prior studies sequentially, with oldest reviewed study dated 09/2017. FINDINGS: The lungs are clear. The cardiomediastinal silhouette is within normal limits. There are no pleural effusions. There is no pneumothorax suspected. IMPRESSION: 1: NO ACUTE CARDIOPULMONARY DISEASE. Reviewed, dictated and finalized at location B. PATIAL INFORMATION SCIENTIST
== END 2024-03-01 10:51 | disposition home or self-care (01) ==
LOC: GOSHIMG 10:50
PROVIDERS: PCP Family Medicine; Visit Provider Nurse Practitioner
DX: R06.02 Shortness of breath (principal)
CPT/HCPCS: 71046

== ENCOUNTER 2024-04-18 08:45 | Outpatient (RCR) | payer MEDICARE, SELFPAY ==
[2024-01-05 15:37] VITALS: BP 136/64; PULSE 61; RESP 18; O2SAT 96
== END 2024-04-18 16:15 | disposition home or self-care (01) ==
LOC: ANHCPREHAB 08:45
PROVIDERS: PCP Family Medicine; Visit Provider Internal Medicine
DX: Z95.5 Presence of coronary angioplasty implant and graft (principal)
CPT/HCPCS: 93798

== ENCOUNTER 2024-05-02 14:16 | Outpatient (CLI) | payer MEDICARE, SELFPAY ==
--- NOTE | ~2024-05-02 | CT_ITS ---
CT sinus wo con Ordering provider: Graham Lozada M.D. History: . acute recurrent maxillary sinusitis . Comparison: None. Technique: Thin slice Scans CT of the paranasal sinuses was performed with coronal and sagittal refor matted images. No IV contrast. . Automated exposure control and iterative reconstruction technique w ere employed. The dose-length product was 382.89 mGy-cm. Findings: NASAL SEPTUM: Mild left nasal septal deviation. OSTEOMEATAL UNITS: Bilaterally patent. NASAL TURBINATES AND NASOPHARYNX: Normal. PARANASAL SINUSES: Well aerated. VISUALIZED MASTOIDS: Normal as visualized. BONES: Normal. SUPERFICIAL SOFT TISSUES/VISUALIZED BRAIN PARENCHYMA: Normal. IMPRESSION: Mild left nasal septal deviation. Otherwise, No definite abnormality. Reviewed, dictated and finalized at location A.
== END 2024-05-02 14:17 | disposition home or self-care (01) ==
PROVIDERS: PCP Nurse Practitioner; Visit Provider Otolaryngology
DX: J01.01 Acute recurrent maxillary sinusitis (principal); J34.89 Other specified disorders of nose and nasal sinuses; J34.2 Deviated nasal septum
CPT/HCPCS: 70486